=== PATIENT | male | born 1990 | race Two or more races ===

== ENCOUNTER 2021-06-26 19:41 | Emergency (ER) | payer OTHER ==
[~2021-06-26] VITALS: Ht 180.3 cm; Wt 86.2 kg
[2021-06-26 21:50] VITALS: BP 130/85
== END 2021-06-27 00:25 | disposition home or self-care (01) ==
LOC: ER 19:43
DX: S33.5XXA Sprain of ligaments of lumbar spine, initial encounter (principal); M54.6 Pain in thoracic spine; X50.0XXA Overexertion from strenuous movement or load, initial encounter; Y93.89 Activity, other specified; Y92.89 Other specified places as the place of occurrence of the external cause; Y99.8 Other external cause status
CPT/HCPCS: 72070; 72100